=== PATIENT | male | born 1985 | race Caucasian/White ===

== ENCOUNTER 2023-06-14 18:28 | Emergency (ER) | payer MEDICAID ==
[~2023-06-14] VITALS: Ht 163.8 cm; Wt 87.5 kg
[2023-06-14 19:03] VITALS: BP 124/93; PULSE 99; RESP 17; TEMP 98.4; O2SAT 99
[2023-06-14] MEDS ORDERED: KETOROLAC 30 MG/ML VIAL IM ONE (19:50)
[2023-06-14] MEDS ORDERED: predniSONE 20 MG TAB PO ONE (19:50)
[2023-06-14] MEDS ORDERED: PRED20TA5 PO (20:27)
[2023-06-14] MEDS ORDERED: IBUP-2218 PO (20:27)
== END 2023-06-14 20:40 | disposition home or self-care (01) ==
LOC: MED 18:28
DX: M10.072 Idiopathic gout, left ankle and foot (principal); Z79.899 Other long term (current) drug therapy; Z79.1 Long term (current) use of non-steroidal anti-inflammatories (NSAID)
CPT/HCPCS: 96372; 99283; J1885; J7512

== ENCOUNTER 2024-01-08 22:43 | Emergency (ER) | payer SELFPAY ==
[~2024-01-08] VITALS: Ht 162.6 cm; Wt 87.5 kg
[~2024-01-08 22:43] MED LIST: IBUP-2218 PO; PRED20TA5 PO
[2024-01-08 23:08] VITALS: BP 120/98; PULSE 69; RESP 18; TEMP 98; O2SAT 100
[2024-01-09 01:09] VITALS: O2SAT 100
[2024-01-09] MEDS: LIDOCAINE 5% 1 EA PATCH TP ONE (01:55)
[2024-01-09] MEDS: KETOROLAC 30 MG/ML VIAL IM ONE (01:56)
== END 2024-01-09 02:51 | disposition home or self-care (01) ==
LOC: MED 22:43
DX: S20.212A Contusion of left front wall of thorax, initial encounter (principal); Z79.899 Other long term (current) drug therapy
CPT/HCPCS: 71101; 96372; 99283; J1885